=== PATIENT | female | born 1970 | race Caucasian/White ===

== ENCOUNTER 2023-12-30 22:23 | Emergency (ER) | payer BC, SELFPAY ==
[2023-12-30 22:27] VITALS: BP 148/90
[2023-12-30 23:16] VITALS: BP 148/83; BMI 27.0
--- NOTE | 2023-12-31 01:39 | ED.SKININJ ---
HPI-Injury
General
Chief Complaint: Skin Problem
Source: patient
Exam Limitations: none
Time Seen by Provider: 12/31/23 01:16
History of Present Illness-Injury
Initial Injury comments:
Pleasant 53-year-old female presents with the medial side of her right heel with a possible puncture wound. She states that over 12 hours ago, she was walking in her garden when she stepped on a twig. Denies any other injury. Denies fever or
chills.
Past History
Past History
ED Past Medical History: Other (wegeners granulomatosis) and Other (Pneumonia, migraines, fibromyalgia and numbness, colitis and diarrhea from the Wegeners, anemia, depression)
ED Past Surgical History: , Gynecological (Removal of an ovary, uterine ablation, D and C), Tonsilectomy and Other
Social History
Tobacco: Smoker
Alcohol: Occasional
Personal:
Living: with family
Employment: Not employed
Family History
Family History: Hypertension and CAD
Review of Systems
Review of Systems
Allergies reviewed?: Yes
All Other Systems: ROS reviewed and negative except as documented in HPI and ROS
Constitutional: Denies fever or chills
EENT: Reports no symptoms
Respiratory: Reports no symptoms
Cardiac: Reports no symptoms
ABD/GI: Reports no symptoms
: Reports no symptoms
Musculoskeletal: Reports muscle pain and muscle stiffness
Skin: Reports no symptoms
Neurological: Reports no symptoms
Endocrine: Reports no symptoms
Hematologic/Lymphatic: Reports no symptoms
Psychiatric: Reports anxiety
Skin Exam
Abrasion
Right Medial Foot:
Description of abrasion: superfical/clean
Puncture Wound
Right Medial Foot:
Type of puncture wound: wood
Age of puncture wound: within the last 24 hours
Any active bleeding?: no active bleeding
Distal skin color and temperature: normal-warm & good color
Normal distal neurovascular exam: Yes
Phy Exam
General Physical Exam
General Presentation: well appearing and mild distress
General age: appears stated age
General Skin: warm and dry
General Habitus: normal
General Mental: alert
Pulmonary Exam
Pulmonary Exam: no respiratory distress and no cough
Neurological Exam
Neurological Exam: alert and oriented x3
Musculoskeletal Exam
Musculoskeletal Exam: full ROM
Skin Exam
Skin Exam: normal color (no cellulitis) and warm/dry
Psychiatric Exam
Psychiatric Exam: normal mood/affect
Course
Orders/Labs/Results
Orders:
Orders
12/30/23 22:31
CR Foot - Right Min 3 Views Urgent
Comment:
Reason For Exam: foreign body
12/31/23 02:12
Tetanus/Diphth/Acelpertussis [Adacel] 0.5 ml IM .ONCE ONE
12/31/23 02:15
Lidocaine/Epinephrine/Tetracai [Let Topical Anesthetic Gel] 3 ml .ROUTE .STK-MED ONE
12/31/23 02:19
Lidocaine/Epinephrine/Tetracai [Let Topical Anesthetic Gel] 3 ml TOPICAL NOW STA
Vital Signs
Initial and Last Documented VS:
Initial Vital Signs
Temp Pulse Resp BP Pulse Ox
98.3 F 91 20 148/90 99
12/30/23 22:27 12/30/23 22:27 12/30/23 22:27 12/30/23 22:27 12/30/23 22:27
Last Documented Vital Signs
Temp Pulse Resp BP Pulse Ox
98.3 F 91 20 148/83 99
12/30/23 22:27 12/30/23 22:27 12/30/23 22:27 12/30/23 23:16 12/30/23 23:17
*Critical Care Note
Total Time (30-74mins, 75-104mins- exclusive of procedures): Not Applicable
Update Note
Update Note:
12/31/2023 0209 AM: After extensive soaking, I explored to base using magnification. No obvious foreign body. No bleeding. No scabbing. Patient still has pain which she attributes to her vasculitis and rheumatoid arthritis. Since this wound
occurred over 12 hours ago, and it appears to be in the process of healing, no suturing recommended. I did discuss this with patient. 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 I have recommended that she take her Bactrim twice daily instead of
once a day. She understands that if pain persist, there is a possibility of a retained foreign body. She will follow-up with podiatry for further evaluation. Patient to be discharged home. She called her daughter for a ride.
Spoke with podiatry who agreed to see her in the office. Discussed this plan with patient who is in complete agreement.
ED Attending Note
-
Portions of this chart may have been created with voice recognition software.� Occasional wrong word or��sound alike� substitutions may have occurred due to the inherent limitations of voice recognition software.
Discharge Plan
Departure
Patient Disposition: Home (Routine Discharge)
Date of Disposition: 12/31/23
Time of Disposition: 02:12
Patient with high blood pressure during this ER visit?: Yes
Condition: Good
Discharge Problem:
Abrasion
Instructions: Wound Care (DC), Abrasions ED, BLOOD PRESSURE
Prescriptions:
No Action
cyclobenzaprine 10 MG tablet
10 mg PO HS
temazepam [Restoril] 30 MG capsule
30 mg PO HS
Patient Comments:
03/28/2022: last filled 03/04/22, 30 tabs for 30 days from [facility]
tramadol 200 MG tablet extended release 24 hr
200 mg PO HS
Patient Comments:
02/10/2023: last filled 01/19/23, 30 tabs for 30 days from [facility]
Savella 50 MG tablet
100 mg PO QPM
poxymidnhd-cvpekucmpi-hkp-cod [Fioricet with Codeine] 1 EACH capsule
1 ea PO Q4H PRN (Reason: migraine)
Patient Comments:
03/28/2022: last filled 09/03/21, 30 tabs for 5 days from [facility]
Rituxan 500 MG/50 ML concentrate
500 mg IV [id number]
budesonide-formoterol [Symbicort] 1 PUFF HFA aerosol inhaler
2 puff inhalation R BID
sulfamethoxazole-trimethoprim 800-160 mg tablet
1 tab PO HS
omeprazole 40 mg capsule,delayed release(DR/EC)
40 mg PO BID
albuterol sulfate 90 mcg/actuation HFA aerosol inhaler
2 puff INHALATION R Q4 PRN (Reason: sob/wheezing)
valsartan 160 mg tablet
160 mg PO DAILY
diltiazem HCl 180 mg Capsule,Extended Release 24 Hr
180 mg PO DAILY
atorvastatin 40 MG tablet
40 mg PO HS
dextroamphetamine-amphetamine 30 mg tablet
30 mg PO BID PRN (Reason: work)
Patient Comments:
02/10/2023: last filled 01/13/23, 60 tabs for 30 days from [facility]
dextromethorphan-guaifenesin [Mucinex DM] 60-1,200 mg Tablet Extended Release 12 Hr
1 tab PO Q12H
aspirin 81 MG tablet,delayed release (DR/EC)
81 mg PO DAILY
prednisone 20 mg tablet
40 mg PO DAILY Qty: 60 0RF
Rx Instructions:
do not taper until seen by pulm in office
Referrals:
Tara Wheeler MD [Family Provider] -
Ligia Albarran DPM [Specified Professional Personl] - As needed
Activity Restrictions/Additional Instructions:
Your tetanus was updated tonight.
Please take your Bactrim (sulfamethoxazole�trimethoprim) twice a day instead of once a day. You stated that you had enough of your prescription to do this.
Please keep an eye out for infection as discussed.
As mentioned, there may be retained foreign body. We explored to the base and there is no obvious foreign body. No foreign body was seen on x-ray. Please follow-up with podiatry as needed with continued pain.
It was a pleasure meeting you and taking part in your care. We hope for your continued healing and wellness.
Please read discharge instructions in their entirety. However, they are for general education and may not describe your exact diagnosis at discharge. Information on your ER visit and medical conditions were discussed with you along with appropriate
follow up information...
If indicated, please take your medications as instructed and indicated on discharge paperwork.
Please schedule a follow up appointment as directed. Call to schedule an appointment
Please return to the emergency department with ANY change in, persisting, or worsening of symptoms. If any of your symptoms do not improve, or persist, or become more severe within 6-12 hours, please return to the emergency department for further
care.
Please return to the emergency department if you develop a headache, neck pain/stiffness, fever greater than 100.4F, chest pain, shortness of breath, persistent nausea, vomiting, slurred speech, difficulty walking, numbness/tingling, weakness, signs
of infection or any other symptoms that are worrisome to you.
If you have any questions or concerns please do not hesitate to call the Hospital at or E-mail me directly at [email or web address]
Interventions
Interventions:
*Risk Screen - Suicide Last Done: 12/30/23 22:27
*General Assessment Last Done: 12/30/23 22:27
*Neglect/Abuse Screening Last Done: 12/30/23 22:27
ED- Fall Risk Assessment Last Done: 12/30/23 23:17
*ED COVID-19 Vaccine History Last Done: 12/30/23 23:17
*Nursing Disposition Last Done: 12/31/23 02:43
ED-Skin Assessment Last Done: 12/30/23 23:17
Discharge Date and Time
Discharge Date/Time: 12/31/23 02:44
Print Language: LEBANESE
[2023-12-31] MEDS: ADACEL 0.5 ML IM (02:17)
[2023-12-31] MEDS: LET TOPICAL ANESTHETIC GEL 3 ML TOPICAL (02:20)
== END 2023-12-31 02:44 | disposition home or self-care (01) ==
LOC: EMR 22:23
PROVIDERS: EMERGENCY PHYSICIAN Student in an Organized Health Care Education/Training Program; FAMILY PHYSICIAN Internal Medicine
DX: S91.331A Puncture wound without foreign body, right foot, initial encounter (principal); S90.811A Abrasion, right foot, initial encounter; W22.8XXA Striking against or struck by other objects, initial encounter; Y93.01 Activity, walking, marching and hiking; Z23 Encounter for immunization; R03.0 Elevated blood-pressure reading, without diagnosis of hypertension; M06.9 Rheumatoid arthritis, unspecified; I77.6 Arteritis, unspecified; M31.30 Wegener's granulomatosis without renal involvement; M79.7 Fibromyalgia; K52.9 Noninfective gastroenteritis and colitis, unspecified; G43.909 Migraine, unspecified, not intractable, without status migrainosus; F32.A Depression, unspecified; F17.200 Nicotine dependence, unspecified, uncomplicated; Z79.82 Long term (current) use of aspirin
CPT/HCPCS: 99283; 90471; 73630; 90715